=== PATIENT | male | born 1985 | race African-American/Black ===

== ENCOUNTER 2018-05-14 17:05 | Emergency (ER) | payer SELFPAY ==
[~2018-05-14] VITALS: Ht 172.7 cm; Wt 81.6 kg
[~2018-05-14 17:05] MED LIST: PRED20TA PO
[2018-05-14 17:16] VITALS: BP 135/90
[2018-05-14] MEDS ORDERED: AMOX875T PO (17:33)
[2018-05-14] MEDS ORDERED: VENTOLIN HFA18 GM INH (17:33)
[2018-05-14] MEDS ORDERED: PRED50TA PO (17:33)
[2018-05-14] MEDS ORDERED: PROM118S5 PO (17:33)
--- NOTE | 2018-05-14 17:33 | PHYS DOC ---
Past Medical History Past Medical History: No Pertinent History Past Surgical History: No Surgical History Alcohol Use: Sober Drug Use: None Adult General Chief Complaint Chief Complaint: SORE THROAT HPI HPI Patient is a 32 year old male with no significant medical history who presents to the ED today complaining of a sore throat, hoarseness to his voice, cough and subjective fevers since yesterday. Review of Systems Review of Systems Constitutional: Reports fever Eyes: Denies change in visual acuity, redness, or eye pain [] HENT: Reports sore throat, hoarseness to his voice. Denies nasal congestion Respiratory: reports cough denies shortness of breath [] Cardiovascular: No additional information not addressed in HPI [] GI: Denies abdominal pain, nausea, vomiting, bloody stools or diarrhea [] : Denies dysuria or hematuria [] Musculoskeletal: Denies back pain or joint pain [] Integument: Denies rash or skin lesions [] Neurologic: Denies headache, focal weakness or sensory changes [] All other systems were reviewed and found to be within normal limits, except as documented in this note. Allergies Allergies Allergies Coded Allergies Type Severity Reaction Last Updated Verified No Known Drug Allergies 09/20/15 No Physical Exam Physical Exam Constitutional: Well developed, well nourished, no acute distress, non-toxic appearance. [] HENT: Normocephalic, atraumatic, bilateral external ears normal, oropharynx moist, no oral exudates, nose normal. posterior pharynx with moderate erythema +2 anterior cervical adenopathy Eyes: PERRLA, EOMI, conjunctiva normal, no discharge. [] Neck: Normal range of motion, no tenderness, supple, no stridor. [] Cardiovascular:Heart rate regular rhythm, no murmur [] Lungs & Thorax: Bilateral breath sounds clear to auscultation [] Abdomen: Bowel sounds normal, soft, no tenderness, no masses, no pulsatile masses. [] Skin: Warm, dry, no erythema, no rash. [] Back: No tenderness, no CVA tenderness. [] Extremities: No tenderness, no cyanosis, no clubbing, ROM intact, no edema. [] Neurologic: Alert and oriented X 3, normal motor function, normal sensory function, no focal deficits noted. [] Psychologic: Affect normal, judgement normal, mood normal. [] Current Patient Data Vital Signs Vital Signs Date Time Temp Pulse Resp B/P (MAP) Pulse Ox O2 Delivery O2 Flow Rate FiO2 05/14/18 17:16 98.5 98 16 135/90 (105) 99 Room Air 98.5 EKG EKG [] Radiology/Procedures Radiology/Procedures [] Course & Med Decision Making Course & Med Decision Making Pertinent Labs and Imaging studies reviewed. (See chart for details) This is a 32-year-old male patient with tonsillitis, and acute bronchitis. Patient was put on prednisone, albuterol inhaler, Tessalon Perles, amoxicillin. OTC pain relievers recommended. Follow-up with primary care doctor in 1-2 weeks. Saltwater gargles also recommended. Dragon Disclaimer Dragon Disclaimer This electronic medical record was generated, in whole or in part, using a voice recognition dictation system. Departure Departure Impression: Primary Impression: Acute bronchitis Additional Impressions: Acute tonsillitis Laryngitis Disposition: HOME, SELF-CARE Condition: STABLE Referrals: NO PCP (PCP) Follow-up with your own doctor in 1-2 weeks Patient Instructions: Acute Bronchitis, [id number], Tonsillitis Additional Instructions: You were evaluated in the emergency room and were noted for tonsillitis and acute bronchitis. Congratulations on your smoking cessation. We put you on several medications take them as prescribed. Scripts Amoxicillin (AMOXICILLIN) 875 Mg Tablet 1 TAB PO BID, #20 TAB Prov: KULDEEP MCDANIEL APRN 05/14/18 Promethazine Hcl/Codeine (PROMETHAZINE-CODEINE SYRUP) 118 Ml Syrup 5 ML PO Q4-6HRS, #80 ML Prov: KULDEEP MCDANIEL APRN 05/14/18 Albuterol Sulfate (VENTOLIN HFA INHALER) 18 Gm Hfa.aer.ad 2 PUFF INH Q4HRS for FOR ASTHMA, #1 INHALER 0 Refills Prov: KULDEEP MCDANIEL APRN 05/14/18 Prednisone (PREDNISONE) 50 Mg Tablet 1 TAB PO DAILY, #5 TAB Prov: KULDEEP MCDANIEL APRN 05/14/18 Problem Qualifiers Primary Impression: Acute bronchitis Bronchitis organism: unspecified organism Qualified Codes: J20.9 - Acute bronchitis, unspecified Additional Impressions: Acute tonsillitis Pharyngitis/tonsillitis etiology: unspecified etiology Qualified Codes: J03.90 - Acute tonsillitis, unspecified KULDEEP MCDANIEL APRN May 14, 2018 17:33
== END 2018-05-14 17:48 | disposition home or self-care (01) ==
LOC: ER 17:05
DX: J03.90 Acute tonsillitis, unspecified (principal); J20.9 Acute bronchitis, unspecified; J04.0 Acute laryngitis; R49.0 Dysphonia
CPT/HCPCS: 99283

== ENCOUNTER 2019-09-20 21:24 | Emergency (ER) | payer BC ==
[~2019-09-20] VITALS: Ht 172.7 cm; Wt 86.3 kg
[~2019-09-20 21:24] MED LIST changes: +AMOX875T PO; +PRED50TA PO; +PROM118S5 PO; +VENTOLIN HFA18 GM INH
[2019-09-20 21:37] VITALS: BP 130/61
[2019-09-20] MEDS ORDERED: LIDO:MAALOX 1:1 20 ML SINGLE DOSE. PO PRN (22:00)
[2019-09-20] MEDS ORDERED: FAMO40TA57 PO (22:15)
--- NOTE | 2019-09-20 22:33 | PHYS DOC ---
Past Medical History Past Medical History: No Pertinent History Past Surgical History: No Surgical History Smoking Status: Light Tobacco Smoker Alcohol Use: Rarely Drug Use: None General Adult EDM: Chief Complaint: SORE THROAT HPI: HPI: 34-year-old male presents for evaluation of epigastric burning and discomfort. Patient admits to history of recent heavy drinking. Review of Systems: Review of Systems: Constitutional: Denies fever or chills. [] Eyes: Denies change in visual acuity. [] HENT: Denies nasal congestion or sore throat. [] Respiratory: Denies cough or shortness of breath. [] Cardiovascular: Denies chest pain or edema. [] GI: Positive abdominal pain positive nausea positive vomiting : Denies dysuria. [] Musculoskeletal: Denies back pain or joint pain. [] Integument: Denies rash. [] Neurologic: Denies headache, focal weakness or sensory changes. [] Endocrine: Denies polyuria or polydipsia. [] Lymphatic: Denies swollen glands. [] Psychiatric: Denies depression or anxiety. [] Heart Score: Risk Factors: Risk Factors: DM, Current or recent (<one month) smoker, HTN, HLP, family history of CAD, obesity. Risk Scores: Score 0 - 3: 2.5% MACE over next 6 weeks - Discharge Home Score 4 - 6: 20.3% MACE over next 6 weeks - Admit for Clinical Observation Score 7 - 10: 72.7% MACE over next 6 weeks - Early Invasive Strategies Current Medications: Current Medications Medications (Trade) Dose Ordered Sig/Nely Start Time Stop Time Status Last Admin Dose Admin Multi-Ingredient Mouthwash/Gargle (Gi Cocktail) 20 ml PRN QID PRN 09/20/19 22:00 09/20/19 22:28 DC 09/20/19 22:07 20 ML Allergies: Allergies: Allergies Coded Allergies Type Severity Reaction Last Updated Verified No Known Drug Allergies 09/20/15 No Physical Exam: PE: Constitutional: Well developed, well nourished, no acute distress, non-toxic appearance. [] HENT: Normocephalic, atraumatic, bilateral external ears normal, oropharynx moist, no oral exudates, nose normal. [] Eyes: PERRLA, EOMI, conjunctiva normal, no discharge. [] Neck: Normal range of motion, no tenderness, supple, no stridor. [] Cardiovascular:Heart rate regular rhythm, no murmur [] Lungs & Thorax: Bilateral breath sounds clear to auscultation [] Abdomen: Bowel sounds normal, soft, no tenderness, no masses, no pulsatile masses. [] Skin: Warm, dry, no erythema, no rash. [] Back: No tenderness, no CVA tenderness. [] Extremities: No tenderness, no cyanosis, no clubbing, ROM intact, no edema. [] Neurologic: Alert and oriented X 3, normal motor function, normal sensory function, no focal deficits noted. [] Psychologic: Affect normal, judgement normal, mood normal. [] Current Patient Data: Vital Signs: Vital Signs Date Time Temp Pulse Resp B/P (MAP) Pulse Ox O2 Delivery O2 Flow Rate FiO2 09/20/19 21:37 98.5 84 12 130/61 (84) Room Air 99.0 98.5 EKG: EKG: [] Radiology/Procedures: Radiology/Procedures: [] Course & Med Decision Making: Course & Med Decision Making Pertinent Labs and Imaging studies reviewed. (See chart for details) [] Patient was treated with a GI cocktail. Patient symptoms resolved post treatment. Patient discharged home on Pepcid. Advised on alcohol sensation. Dragon Disclaimer: Calin Disclaimer: This electronic medical record was generated, in whole or in part, using a voice recognition dictation system. Departure Departure Impression: Primary Impression: GERD (gastroesophageal reflux disease) Disposition: HOME/RESIDENCE PRIOR TO ADM Condition: STABLE Patient Instructions: Gastroesophageal Reflux Disease, Adult Scripts Famotidine (PEPCID) 40 Mg Tablet 40 MG PO HS for 10 Days, #10 TAB Prov: SAÚL BACA DO 09/20/19 Justicifation of Admission Dx: Justifications for Admission: Justification of Admission Dx: N/A SAÚL BACA DO Sep 20, 2019 22:33
== END 2019-09-20 22:27 | disposition home or self-care (01) ==
LOC: ER 21:24
DX: K21.9 Gastro-esophageal reflux disease without esophagitis (principal); Z72.0 Tobacco use
CPT/HCPCS: 99282

== ENCOUNTER 2019-10-19 07:49 | Emergency (ER) | payer BC ==
[~2019-10-19] VITALS: Ht 172.7 cm; Wt 79.1 kg
[~2019-10-19 07:49] MED LIST changes: +FAMO40TA57 PO
[2019-10-19 08:00] VITALS: BP 137/66
== END 2019-10-19 10:00 | disposition left against medical advice (07) ==
LOC: ER 07:49
DX: H57.89 Other specified disorders of eye and adnexa (principal); Z53.21 Procedure and treatment not carried out due to patient leaving prior to being seen by health care provider